=== PATIENT | female | born 1975 | race Two or more races ===

== ENCOUNTER 2023-01-15 21:50 | Emergency (ER) | payer OTHER ==
[~2023-01-15] VITALS: Ht 170.2 cm; Wt 95.5 kg
[2023-01-15] MEDS ORDERED: KETOROLAC TROMETHAMINE INJ 30 MG/ML VIAL IV ONE (23:00)
[2023-01-15] MEDS ORDERED: hydrALAZINE HCL IV 20 MG VIAL IV ONE (23:00)
[2023-01-15] MEDS ORDERED: KETOROLAC TROMETHAMINE INJ 30 MG/ML VIAL ONE (23:04)
[2023-01-15] MEDS ORDERED: hydrALAZINE HCL IV 20 MG VIAL ONE (23:04)
--- NOTE | 2023-01-15 23:12 | NUR ---
IV LINE STARTED AT RAC 20G, BLOOD DRAWN, URINE COLLECTED, SENT TO LAB
--- NOTE | 2023-01-15 23:12 | NUR ---
[facility]T AT BEDSIDE FOR EKG
--- NOTE | 2023-01-15 23:12 | NUR ---
[facility] AT BEDSIDE
--- NOTE | 2023-01-15 23:50 | NUR ---
CALLED LAB REGARDING LABS, SPOKE WITH SUAD, VERIFIED THEY RECEIVED THE BLOOD.
[2023-01-15 23:56] LABS: BASOPHILS # (AUTO) 0.1 K/uL (0.0-0.2); BASOPHILS % (AUTO) 0.6 % (0.0-2.0); EOSINOPHILS % (AUTO) 4.5 % (0.0-6.0); HEMATOCRIT 36 % (33-45); LYMPHOCYTES # (AUTO) 3.1 K/uL (0.8-4.8); LYMPHOCYTES % (AUTO) 32.5 % (20.0-44.0); MEAN CORPUSCULAR HGB CONC 31 g/dl (31.0-36.0); MEAN CORPUSCULAR VOLUME 73 fL (82-100); MONOCYTES # (AUTO) 0.7 K/uL (0.1-1.30); MONOCYTES % (AUTO) 7.2 % (2.0-12.0); NEUTROPHILS # (AUTO) 5.2 K/uL (1.8-8.9); NEUTROPHILS % (AUTO) 55.2 % (43.0-81.0); PLATELET COUNT (AUTO) 247 K/uL (150-450); RED BLOOD CELL COUNT(AUTO) 4.89 MIL/uL (4.0-5.2); WHITE BLOOD COUNT (AUTO) 9.4 K/uL (4.3-11.0)
[2023-01-16 00:05] LABS: CALCIUM, SERUM 9.3 mg/dL (8.5-10.1); CARBON DIOXIDE 27 mmol/L (21-32); CHLORIDE 105 mmol/L (98-107); CREATININE 0.9 mg/dL (0.6-1.3); GLUCOSE 96 mg/dL (74-106); POTASSIUM 4.1 mmol/L (3.5-5.1); SODIUM SERUM 140 mmol/L (136-145); UREA NITROGEN, BLOOD 15 mg/dL (7-18)
[2023-01-16 00:09] LABS: BILIRUBIN,URINE NEGATIVE (NEGATIVE); COLOR,URINE OTHER (YELLOW); LEUKOCYTE ESTERASE ,URINE TRACE (NEGATIVE); NITRITE, URINE NEGATIVE (NEGATIVE); PROTEIN,URINE NEGATIVE (NEGATIVE); UGLUCOSE NEGATIVE (NEGATIVE); UROBILINOGEN,URINE 0.2 EU/dL (0.2)
[2023-01-16 00:11] LABS: ALANINE AMINOTRANSFERASE 24 U/L (12-78); ALKALINE PHOSPHATASE 94 U/L (46-116); ASPARTATE AMINOTRANSFERASE 11 U/L (15-37); BILIRUBIN,TOTAL 0.2 mg/dL (0.2-1.0)
[2023-01-16 00:20] LABS: WBC,URINE 0-2 /HPF (0-3)
[2023-01-16 00:21] LABS: BACTERIA,URINE Rare /HPF (None Seen); RBC,URINE 0-2 /HPF (0-2); SQUAMOUS EPITHELIAL CELL,UR Rare /HPF (None Seen)
--- NOTE | 2023-01-16 01:17 | NUR ---
Patient discharged to home in stable condition. Written and verbal after care instructions given. Patient verbalizes understanding of instruction. Pt ambulatory with a steady gait
[2023-01-16 01:18] VITALS: BP 131/75
== END 2023-01-16 01:18 | disposition home or self-care (01) ==
LOC: ER 21:53
DX: I16.0 Hypertensive urgency (principal); Z91.148 Patient's other noncompliance with medication regimen for other reason; G43.909 Migraine, unspecified, not intractable, without status migrainosus; I10 Essential (primary) hypertension
CPT/HCPCS: 99285; 96374; 70450; 71045; 96375; 93005; 85025; 80048; 80076; 81001; 36415; 84484; 85730; J0360; J1885